=== PATIENT | male | born 1950 | race African-American/Black ===

== ENCOUNTER 2024-02-16 12:54 | Outpatient (CLI) | payer MEDICARE | END 2024-02-16 12:55 | disposition home or self-care (01) | LOC: CSHULT 12:54 | PROVIDERS: ATTEND Family Medicine | DX: R42 Dizziness and giddiness (principal); G45.3 Amaurosis fugax; I67.89 Other cerebrovascular disease; G31.9 Degenerative disease of nervous system, unspecified; I08.1 Rheumatic disorders of both mitral and tricuspid valves | CPT/HCPCS: 70450; 93306; 93880 ==